=== PATIENT | female | born 1955 | race Caucasian/White ===

== ENCOUNTER 2022-02-04 07:48 | Day surgery (SDC) | payer MEDICARE, OTHER, SELFPAY ==
[2022-02-02 14:53] VITALS: BMI 25.0
[2022-02-04 08:16] VITALS: BP 140/88; PULSE 77; RESP 18; TEMP 36.1; O2SAT 100; BMI 25.0
[2022-02-04 08:21] LABS: COVID19 -Nasal RAPID Negative (Negative)
[2022-02-04] MEDS: LACTATED RINGERS 1,000 ML 84 ML IV (08:30)
--- NOTE | 2022-02-04 09:06 | PM.PREOP ---
Pre-operative Note COVID-19 COVID-19 status: Negative Result date/Date tested (Pos, Neg/Pending): 02/04/22 Interval Note History & Physical reviewed/Exam performed by Physician: Yes Changes to H&P: No
--- NOTE | 2022-02-04 09:18 | P.OP_ITS ---
Operative Date/Time/Diagnoses Date of procedure: 02/04/22 Time of procedure: 09:18 Pre-op diagnosis: Right second toe painful bone spurs, arthritis Post-op diagnosis: same Procedure & Clinicians Procedure: Right second distal interphalangeal joint arthrodesis Same procedure as scheduled: Yes Indications: 66-year-old female with pain and arthritis to the right 2nd toe. Conservative measures have failed to alleviate her pain and she wished to have surgical intervention at this time. We spoke of the risks, potential complications, alternatives, and expected outcomes. Consent was signed and there are no contraindications to the procedure at this time. Surgeon: Thea Angulo Click Yes if Unassisted: Yes Anesthesia Type: General Operative Notes Closure Type: primary Specimen(s): none sent Prosthetic devices, grafts, tissues, transplants, or devices: 0.045 k-wire Estimated Blood Loss (mL): 10 Blood products transfused: none Tourniquet time (min): 30 Procedure in detail: The patient was brought to the operating room and placed on the operating table in the supine position. The tourniquet was placed about the right ankle. She is well padded, appropriately aligned. After induction of general anesthesia the right foot and ankle were prepped and draped in the usual aseptic manner. The tourniquet was inflated. Incision was made over the 2nd distal and proximal interphalangeal joints dorsally. The incision was deepened through subcutaneous tissues being careful to identify and retract all vital neural and vascular structures. All bleeders were cauterized and ligated as necessary. A transection of the extensor tendon at the distal interphalangeal joint was performed showing spurring at that joint. This was reduced with a rongeur and a saw was used to resect the base of the distal phalanx and the head of the intermediate phalanx. A curette was used to further remove any of the lingering cartilaginous tissue from either surface and the area was irrigated with copious amounts normal sterile saline. In looking at the base of the intermediate phalanx, there was a small spur on it dorsally, so that was able to be reduced as well. The proximal interphalangeal joint was entered by taking down the extensor tendon to allow for wire placement. Under the aid of mini C-arm, the 0.045 k-wire was placed in the base of the intermediate phalanx and out the distal tip of the toe. This was retrograded back across the proximal phalanx. The distal interphalangeal joint was in good alignment but without resection of the proximal interphalangeal joint, this placed pressure on it and through various attempts for alignment, it was decided not to include the proximal phalanx in the pinning, and this allowed for good alignment of the distal interphalangeal joint. This closed down the distal interphalangeal joint with good apposition, and k-wire was checked for placement under mini C-arm in all three planes. Excess distal wire was removed after careful bending as it exited the toe, and pin cap was placed. Tourniquet was deflated, a prompt hyperemic response was seen to the foot. The extensor tendon was repaired using 4-0 Vicryl in both locations and subcutaneous closure using Vicryl as well. Nylon was used to close the skin. The tip of toe where the wire was exiting was dressed with triple antibiotic ointment. A lightly compressive dressing was placed on the foot and she was placed in stockinette and postsurgical boot and transferred to the PACU with vital signs stable. Complications: none Post-operative Condition: stable Disposition: PACU Plan for aftercare: Following a period of postoperative monitoring, the patient will be discharged t o home on written and oral postoperative instructions including keeping the dressing dry and intact, no weight to the surgical foot, icing and elevating the foot when seated home. DVT prevention techniques have been reviewed. For the 1st postoperative visit the dressing will be changed and close to the 4th postoperative week we will likely remove K-wire.
[2022-02-04] MEDS: CEFAZOLIN 2 GM/100 ML PREMIX 100 ML IV (09:28)
--- NOTE | 2022-02-04 09:54 | SUR.OPER ---
Supine on padded OR bed, head on pillow, arms secured on padded arm boards at <90 degrees abduction, legs uncrossed, safety belt at thigh, bump right hip, gel bump left calf
[2022-02-04] MEDS: LIDOCAINE 2% INJ MDV 50ML 50 MG INJ (09:57)
[2022-02-04] MEDS: BUPIVACAINE 0.5% W/ EPI (PF) 30 ML VIAL 10 ML INJ (09:58)
[2022-02-04] MEDS: NEOMYCIN/POLYMYXIN/BACITRA UD OINT 1 EACH TOP (10:07)
[2022-02-04 10:43] VITALS: BP 116/65; PULSE 83; RESP 14; TEMP 37.1; O2SAT 96
[2022-02-04 10:48] VITALS: BP 109/73; PULSE 82; RESP 15; O2SAT 97
[2022-02-04 10:53] VITALS: BP 110/64; PULSE 82; RESP 15; O2SAT 97
[2022-02-04 10:59] VITALS: BP 112/64; PULSE 77; RESP 14; TEMP 36.8; O2SAT 98
[2022-02-04 11:03] VITALS: BP 117/62; PULSE 82; RESP 16; TEMP 36.9; O2SAT 97
== END 2022-02-04 11:34 | disposition home or self-care (01) ==
PROVIDERS: PCP Family Medicine; Referring Provider Podiatrist; Visit Provider Podiatrist
PROC: (CPT 28285; principal; 2022-02-04 09:30)
DX: M77.8 Other enthesopathies, not elsewhere classified (principal); M19.071 Primary osteoarthritis, right ankle and foot; Z20.822 Contact with and (suspected) exposure to COVID-19
CPT/HCPCS: 28285; 87635; J0690; J1100; J1885; J2250; J2405; J2704; J3010